=== PATIENT | female | born 1945 | race Caucasian/White ===

== ENCOUNTER 2025-06-11 10:00 | Outpatient (CLI) | payer OTHER ==
[~2025-06-11 10:00] MED LIST: APIX5TAB PO; ATOR-507 PO; RANI150C11 PO
[2025-06-11 10:46] LABS: Hematocrit 43.9 % (36.0-46.0); Hemoglobin 15.1 g/dL (12.2-16.2); Mean Corpuscular Hemoglobin 30.9 pg (28.0-32.0); Mean Corpuscular Volume 89.9 fL (80.0-100.0); Nucleated Red Blood Cells % 0.2 %
[2025-06-11 11:18] LABS: Alanine Aminotransferase 33 U/L (7-40); Albumin 4.2 g/dL (3.2-4.8); Alkaline Phosphatase 106 U/L (46-116); Anion Gap 7 (5-15); BUN/Creatinine Ratio 9.4 (10.0-20.0); Blood Urea Nitrogen 13 mg/dL (9-23); Calcium 9.2 mg/dL (8.7-10.4); Carbon Dioxide 29 mmol/L (20-31); Chloride 105 mmol/L (98-107); Potassium 3.9 mmol/L (3.5-5.1); Sodium 141 mmol/L (136-145); Total Protein 7.2 g/dL (5.7-8.2)
[2025-06-11 11:19] LABS: Bilirubin, Total 0.4 mg/dL (0.2-1.0); Glucose 171 mg/dL (74-106)
== END 2025-06-11 17:00 | disposition home or self-care (01) ==
LOC: LAB 10:00
PROVIDERS: ATTEND Nurse Practitioner Family
DX: E53.9 Vitamin B deficiency, unspecified (principal); K12.0 Recurrent oral aphthae
CPT/HCPCS: 36415; 80053; 82607; 82746; 85025